=== PATIENT | female | born 1995 | race American Indian/Alaskan Native ===

== ENCOUNTER 2018-01-05 21:50 | Emergency (ER) | payer OTHER ==
[2018-01-05 22:26] VITALS: BP 107/69
[2018-01-05] MEDS ORDERED: TETRACAINE 0.5% OU ONE (22:45)
[2018-01-05] MEDS ORDERED: FUL-GLO OP ONE (22:45)
--- NOTE | 2018-01-05 22:50 | Emergency Department Report ---
Eye Injury/Foreign Body - HPI Duration: Today Eye Location: Left Severity: Mild Tetanus Status: Up to Date Eye Symptoms: Eye Pain: Yes, Blurred Vision: No, Eye Redness: Yes, Grinding/ Hammering Metal: Yes, Used Eye Protection: No, Contact Lens Use: No, Recalls Injury: Yes (At an outside event, dust in air), Photophobia: No Other History: This is a 22 y.o. female that presents with sensation of sand and pain to left eye that started today around 1730. She was at an outside event and there was dust in the air. She felt as if someone tossed something in her eye. She tried to flush both eyes with water when she arrived home with no improvement of symptoms. She decided to come in for evaluation when her left eye turned red and burning sensation with lateral eye movement. Reports pain is worse when looking peripherally. Denies visual change, discharge, swelling, or deformity. ED Review of Systems ROS: Stated complaint: LEFT EYE PAIN Other details as noted in HPI Constitutional: denies: chills, fever Eyes: eye pain (left eye, sand sensation and burning). denies: eye discharge, vision change Respiratory: denies: cough, shortness of breath, wheezing Cardiovascular: denies: chest pain, palpitations Gastrointestinal: denies: abdominal pain, nausea, diarrhea Neurological: denies: headache, weakness, numbness, paresthesias Psychiatric: denies: anxiety, depression ED Past Medical Hx - Past Medical History Previous Medical History?: No - Surgical History Past Surgical History?: No - Social History Smoking Status: Never Smoker Substance Use Type: None Eye Injury Exam - Exam General: Vital signs noted. No distress. Alert and acting appropriately. - Visual Acuity Left Vision Acuity Degree: 20/30 Eye Exam: Left Injection, Left Fluorescein Uptake, Left Fluorescein Uptake ( slit lamp), Both EOMI, Neither Chemosis, Neither Abnormal Pupil, Neither Eye Foreign Body, Neither Lid Foreign Body, Neither Mucous Discharge, Neither Purulent Discharge, Neither Cell/Flare (slit lamp), Neither Corneal Edema, Neither Photophobia Right Vision Acuity Degree: 20/20 Eye Exam: Both EOMI, Neither Injection, Neither Chemosis, Neither Abnormal Pupil , Neither Eye Foreign Body, Neither Lid Foreign Body, Neither Mucous Discharge, Neither Purulent Discharge, Neither Fluorescein Uptake, Neither Fluorescein Uptake (slit lamp), Neither Cell/Flare (slit lamp), Neither Corneal Edema, Neither Photophobia Bilateral Vision Acuity Degree: 20/20 ED Course Vital Signs 01/05/18 01/05/18 22:21 22:32 Temperature 98.3 F 98.3 F Pulse Rate 81 73 Respiratory 18 16 Rate Blood Pressure 107/69 107/69 O2 Sat by Pulse 99 96 Oximetry ED Medical Decision Making - Medical Decision Making This is a 22 year old female that presents with left eye foreign body sensation. Patient is stable and was examined by me. Vitals normal. Examined left eye with slit lamp, applied tetricaine gtts, and fluorescein. Physical assessment susceptible of foreign body, sand. Irrigated after assessment. Patient reports feeling better. Discussed plan with patient and she agreed with plan. Discharged home in stable condition. Follow up with PCP ophthalmology in 24-72 hours. Critical care attestation.: If time is entered above; I have spent that time in minutes in the direct care of this critically ill patient, excluding procedure time. ED Disposition Clinical Impression: Eye foreign body Disposition: DC-01 TO HOME OR SELFCARE Is pt being admited?: No Does the pt Need Aspirin: No Condition: Stable Instructions: Eye Foreign Body (ED) Additional Instructions: Follow up with ophthalmology in 24-72 hours if symptoms persist. Referrals: [facility] [Provider Group] - 3-5 Days [facility] [Provider Group] - 3-5 Days Time of Disposition: 23:47 Print Language: THAI
[2018-01-05] MEDS ORDERED: BSS OU ONE (22:52)
== END 2018-01-06 00:17 | disposition home or self-care (01) ==
LOC: ED 21:50
DX: T15.02XA Foreign body in cornea, left eye, initial encounter (principal); X58.XXXA Exposure to other specified factors, initial encounter; Y93.89 Activity, other specified; Y92.89 Other specified places as the place of occurrence of the external cause; Y99.8 Other external cause status
CPT/HCPCS: 99283

== ENCOUNTER 2018-01-06 10:54 | Emergency (ER) | payer OTHER ==
--- NOTE | 2018-01-06 11:48 | Emergency Department Report ---
ED Eye Problem HPI - General Chief complaint: Eye Problems Stated complaint: LEFT EYE SWOLLEN Time Seen by Provider: 01/06/18 11:45 Source: patient Mode of arrival: Ambulatory Limitations: No Limitations - History of Present Illness Initial comments: 22-year-old female past medical history none presents with complaint of foreign body sensation left eye. Patient states that dust may have hit her on it is somewhat uncomfortable. Patient denies any significant blurry vision but does state her left eye has been tearing since yesterday. Awake alert and oriented 3. Patient states her tetanus vaccine is up-to-date. Patient states she came to the ED last night was not prescribed any medicines. States she had her eye irrigated. chief complaint: eye pain, eye redness Onset/Timin -: days(s) Location: left eye If Injury: other (patient states dust blew into her eye) Eye Symptoms: burning, redness, pain, itching Severity scale (0 -10): 5 If Pain, Quality: aching Consistency: intermittent Associated Symptoms: none Treatments Prior to Arrival: irrigated eye - Related Data Previous Rx's Medication Instructions Recorded Last Taken Type Erythromycin [Erythromycin Ophth 1 applic OP QID #1 tube 01/06/18 Unknown Rx Oint] Glycerin/Propylene Glycol 1 drop OP Q4H PRN #1 drops 01/06/18 Unknown Rx [Artificial Tears Drops] Ibuprofen [Motrin] 800 mg PO Q8HR PRN #20 tablet 01/06/18 Unknown Rx Allergies Allergy/AdvReac Type Severity Reaction Status Date / Time No Known Allergies Allergy Verified 01/05/18 22:32 ED Review of Systems ROS: Stated complaint: LEFT EYE SWOLLEN Other details as noted in HPI Constitutional: denies: chills, fever Eyes: eye pain (since yesterday), eye discharge. denies: vision change ENT: denies: ear pain, throat pain Respiratory: denies: cough, shortness of breath, wheezing Cardiovascular: denies: chest pain, palpitations Endocrine: no symptoms reported Gastrointestinal: denies: abdominal pain, nausea, diarrhea Genitourinary: denies: urgency, dysuria, discharge Musculoskeletal: denies: back pain, joint swelling, arthralgia Skin: denies: rash, lesions Neurological: denies: headache, weakness, paresthesias Psychiatric: denies: anxiety, depression Hematological/Lymphatic: denies: easy bleeding, easy bruising ED Past Medical Hx - Past Medical History Previous Medical History?: No - Social History Smoking Status: Never Smoker - Medications Home Medications: Home Medications Medication Instructions Recorded Confirmed Last Taken Type Erythromycin [Erythromycin Ophth 1 applic OP QID #1 tube 01/06/18 Unknown Rx Oint] Glycerin/Propylene Glycol 1 drop OP Q4H PRN #1 drops 01/06/18 Unknown Rx [Artificial Tears Drops] Ibuprofen [Motrin] 800 mg PO Q8HR PRN #20 tablet 01/06/18 Unknown Rx ED Physical Exam - General Limitations: No Limitations General appearance: alert, in no apparent distress - Head Head exam: Present: atraumatic, normocephalic - Eye Eye exam: Present: normal appearance, PERRL, EOMI Pupils: Present: normal accommodation - Expanded Eye Exam Expanded Pupils: Regular, Round: Bilateral, Reactive: Bilateral Sclera/Conjunctival: Normal Inspection: Bilateral, Injection: Left (there is a corneal abrasion near the limbus on the fluorescien stain exam, not near pupil) Visual acuity (R) = 20/: 20 Visual acuity (L) = 20/: 25 - ENT ENT exam: Present: mucous membranes moist - Neck Neck exam: Present: normal inspection - Respiratory Respiratory exam: Present: normal lung sounds bilaterally. Absent: respiratory distress - Cardiovascular Cardiovascular Exam: Present: regular rate, normal rhythm. Absent: systolic murmur, diastolic murmur, rubs, gallop - GI/Abdominal GI/Abdominal exam: Present: soft, normal bowel sounds - Extremities Exam Extremities exam: Present: normal inspection - Back Exam Back exam: Present: normal inspection - Neurological Exam Neurological exam: Present: alert, oriented X3 - Psychiatric Psychiatric exam: Present: normal affect, normal mood - Skin Skin exam: Present: warm, dry, intact, normal color. Absent: rash ED Course Vital Signs 01/06/18 11:04 Temperature 98.2 F Pulse Rate 74 Respiratory 16 Rate Blood Pressure 107/74 O2 Sat by Pulse 99 Oximetry ED Medical Decision Making - Medical Decision Making A/P: Corneal abrasion left eye 1-erythromycin ointment, artificial tears 2-follow-up with ophthalmology 3-visual acuity 20/25 left eye, 20/20 bilaterally 4- Tdap up to date as per patient Critical care attestation.: If time is entered above; I have spent that time in minutes in the direct care of this critically ill patient, excluding procedure time. ED Disposition Clinical Impression: Corneal abrasion Qualifiers: Encounter type: initial encounter Laterality: left Qualified Code(s): S05.02XA - Injury of conjunctiva and corneal abrasion without foreign body, left eye, initial encounter Disposition: TO HOME OR SELFCARE Is pt being admited?: No Does the pt Need Aspirin: No Condition: Stable Instructions: Corneal Abrasion (ED) Prescriptions: Erythromycin [Erythromycin Ophth Oint] 1 applic OP QID #1 tube Glycerin/Propylene Glycol [Artificial Tears Drops] 1 drop OP Q4H PRN #1 drops PRN Reason: Itching Ibuprofen [Motrin] 800 mg PO Q8HR PRN #20 tablet PRN Reason: Pain Referrals: TREY CORONEL MD [Staff Physician] - 3-5 Days ESTHER KAISER MD [Staff Physician] - 3-5 Days Forms: Work/School Release Form(ED), Accompanied Note Time of Disposition: 12:30
[2018-01-06] MEDS ORDERED: FUL-GLO OP ONE ×2 (12:20)
[2018-01-06 12:41] VITALS: BP 110/56
== END 2018-01-06 12:40 | disposition home or self-care (01) ==
LOC: ED 10:54
DX: S05.02XA Injury of conjunctiva and corneal abrasion without foreign body, left eye, initial encounter (principal); X58.XXXA Exposure to other specified factors, initial encounter; Y93.89 Activity, other specified; Y92.89 Other specified places as the place of occurrence of the external cause; Y99.8 Other external cause status
CPT/HCPCS: 99282